=== PATIENT | female | born 1965 | race African-American/Black ===

== ENCOUNTER 2017-07-17 09:19 | Emergency (ER) | payer OTHER ==
[~2017-07-17] VITALS: Ht 167.6 cm; Wt 84.0 kg
[2017-07-17 10:53] VITALS: BP 104/70
[2017-07-17] MEDS ORDERED: KETOROLAC 60MG/2ML VIAL IM ONE (11:00)
== END 2017-07-17 11:29 | disposition home or self-care (01) ==
LOC: ER 09:58
DX: M79.641 Pain in right hand (principal); M79.642 Pain in left hand; R20.2 Paresthesia of skin; M19.90 Unspecified osteoarthritis, unspecified site
CPT/HCPCS: 29125; 99284; J1885

== ENCOUNTER 2017-09-15 20:39 | Emergency (ER) | payer OTHER ==
[~2017-09-15] VITALS: Ht 167.6 cm; Wt 82.0 kg
[2017-09-16] MEDS ORDERED: SODIUM CHLORIDE 0.9% 1,000 ML IV ONE (02:30)
[2017-09-16] MEDS ORDERED: KETOROLAC 30MG/ML VIAL IV STA (02:30)
[2017-09-16] MEDS ORDERED: KETOROLAC 30MG/ML VIAL IM ONE (02:45)
[2017-09-16 02:54] LABS: BASOPHILS % 0.5 % (0.0-2.0); EOSINOPHILS % 1.5 % (0.0-5.0); HEMATOCRIT. 37.4 % (36.0-48.0); HEMOGLOBIN. 12.5 g/dL (12.0-16.0); LYMPHOCYTES % 52.5 % (20.0-50.0); MEAN CORPUSCULAR HEMOGLOBIN 30.3 pg (28.0-32.0); MEAN CORPUSCULAR VOLUME 90.8 fL (81.0-99.0); MEAN PLATELET VOLUME 9.4 fl (7.4-10.4); MONOCYTES % 9.7 % (2.0-8.0); NEUTROPHILS % 35.8 % (40.0-76.0); PLATELET 168 x1000/uL (130-400); RED BLOOD CELL COUNT 4.12 mill/uL (4.2-5.4); RED CELL DISTRIBUTION WIDTH 14.7 % (11.6-14.6)
[2017-09-16 02:57] LABS: CLARITY URINE CLEAR (CLEAR); COLOR URINE YELLOW (YELLOW); KETONES URINE NEGATIVE (NEGATIVE); LEUKOCYTE ESTERASE URINE TRACE (NEGATIVE); NITRITE URINE NEGATIVE (NEGATIVE); OCCULT BLOOD URINE NEGATIVE (NEGATIVE); PROTEIN URINE NEGATIVE (NEGATIVE); SPECIFIC GRAVITY URINE 1.023 (1.005-1.030); UROBILINOGEN URINE 0.2 E.U./dL (0.2-1.0)
[2017-09-16 02:58] LABS: CHLORIDE 110 mEq/L (98-107)
[2017-09-16 03:04] LABS: CARBON DIOXIDE 24 mEq/L (21-32)
[2017-09-16 03:07] LABS: HCG SCREEN NEGATIVE
[2017-09-16 03:35] VITALS: BP 115/70
== END 2017-09-16 04:30 | disposition home or self-care (01) ==
LOC: ER 20:39
DX: R10.11 Right upper quadrant pain (principal); F17.200 Nicotine dependence, unspecified, uncomplicated; Z91.018 Allergy to other foods
CPT/HCPCS: 36415; 76705; 80053; 81001; 83690; 84703; 85025; 96372; 99285; J1885; J7030; A4315